=== PATIENT | female | born 1990 | race Caucasian/White ===

== ENCOUNTER → 2023-11-29 | Outpatient (CLI) | payer OTHER ==
[~2023-11-29] MED LIST: KETO10TAB PO; SYNT25TA PO
== END ==
LOC: M RAD 08:04
PROVIDERS: ATTEND Surgery
DX: R10.11 Right upper quadrant pain (principal)
CPT/HCPCS: 78227; A9537

== ENCOUNTER 2024-02-21 09:48 | Day surgery (SDC) | payer OTHER ==
[~2024-02-21] VITALS: Ht 154.9 cm; Wt 78.0 kg
[~2024-02-21 09:48] MED LIST changes: +ADDE30CA3 PO
[2024-02-21] MEDS ORDERED: MIDAZOLAM INJ 2MG/2ML VIAL As Ordered ONE (09:53)
[2024-02-21] MEDS ORDERED: propofoL 200 MG/20 ML VIAL As Ordered ONE (09:54)
[2024-02-21] MEDS ORDERED: LIDOCAINE 2% 100MG/5ML SDV (FOR ANES.) As Ordered ONE (09:54)
[2024-02-21] MEDS ORDERED: ROCURONIUM BROMIDE 50MG/5ML VIAL As Ordered ONE (09:54)
[2024-02-21] MEDS ORDERED: fentaNYL 100 MCG/2 ML INJECTION As Ordered ONE (09:54)
[2024-02-21] MEDS ORDERED: LR 1,000 ML IV SCH ×2 (10:30→12:10)
[2024-02-21] MEDS ORDERED: ACETAMINOPHEN 1000MG 100ML IV BAG As Ordered ONE (11:00)
[2024-02-21] MEDS ORDERED: ONDANSETRON 4MG 2ML VIAL As Ordered ONE (11:00)
[2024-02-21] MEDS ORDERED: KETOROLAC 60MG 2ML VIAL As Ordered ONE (11:00)
[2024-02-21] MEDS ORDERED: SUGAMMADEX SODIUM 500 MG/5 ML VIAL (BRIDION) As Ordered ONE (11:01)
[2024-02-21] MEDS ORDERED: HYDROmorphone HCL 2MG/ML 1ML VIAL As Ordered ONE (11:51)
[2024-02-21] MEDS ORDERED: HYDROMORPHONE HCL 0.5 MG/ 0.5 ML SYRINGE IV PRN (12:10)
[2024-02-21] MEDS ORDERED: fentaNYL 100 MCG/2 ML INJECTION IV PRN (12:10)
[2024-02-21] MEDS ORDERED: ONDANSETRON 4MG 2ML VIAL IV PRN (12:10)
[2024-02-21] MEDS ORDERED: NORCO, ANEXSIA 5/325MG TABLET (HYDROcodone/ACETAMINOPHEN) PO PRN (12:50)
[2024-02-21] MEDS: oxyCODONE 5MG TAB PO PRN (12:50)
[2024-02-21 14:34] VITALS: BP 148/86; TEMP 97.4; O2SAT 100
== END 2024-02-21 14:47 | disposition home or self-care (01) ==
LOC: M SDC 09:48
PROVIDERS: ATTEND Surgery
DX: K81.1 Chronic cholecystitis (principal); Z88.0 Allergy status to penicillin; Z79.899 Other long term (current) drug therapy
CPT/HCPCS: 47562; 81025; 88304; J0131; J0665; J1100; J1170; J1885; J2250; J2405; J3010; S2900

== ENCOUNTER → 2024-07-03 | Outpatient (CLI) | payer OTHER | LOC: M RAD 09:53 | PROVIDERS: ATTEND Surgery | DX: R10.11 Right upper quadrant pain (principal); K43.2 Incisional hernia without obstruction or gangrene ==

== ENCOUNTER 2025-05-20 06:54 | Day surgery (SDC) | payer OTHER ==
[~2025-05-20] VITALS: Ht 154.9 cm; Wt 75.1 kg
[~2025-05-20 06:54] MED LIST changes: +ALLE180T42 PO; +D 50CAP2 PO; +ELET40TA PO; +FLUTISP; +VYVA30CA4 PO
[2025-05-20] MEDS ORDERED: LIDOCAINE 2% 100 MG/5 ML SDV (FOR ANES.) As Ordered ONE (07:05)
[2025-05-20 07:41] VITALS: TEMP 98.5
[2025-05-20 08:09] VITALS: BP 127/75; O2SAT 100
== END 2025-05-20 08:09 | disposition home or self-care (01) ==
LOC: M OPP 06:54
PROVIDERS: ATTEND Surgery
DX: K64.0 First degree hemorrhoids (principal); R10.11 Right upper quadrant pain; K92.1 Melena; Z88.1 Allergy status to other antibiotic agents; Z79.899 Other long term (current) drug therapy